=== PATIENT | female | born 1990 | race Caucasian/White ===

== ENCOUNTER 2017-03-08 10:40 | Emergency (ER) | payer MEDICAID ==
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
[2017-03-08] MEDS ORDERED: IBUPROFEN 600 MG TAB PO ONE (11:48)
[2017-03-08 14:45] VITALS: BP 111/81; PULSE 96; RESP 20; TEMP 97.9; O2SAT 97
== END 2017-03-08 14:47 | disposition home or self-care (01) ==
DX: L02.222 Furuncle of back [any part, except buttock and flank] (principal); F17.200 Nicotine dependence, unspecified, uncomplicated; E11.9 Type 2 diabetes mellitus without complications

== ENCOUNTER 2017-04-22 17:03 | Emergency (ER) | payer MEDICAID ==
[~2017-04-22 17:03] MED LIST: AMOXICILLIN/CLAVULANATE POT 875/125 MG TAB PO SCH
[2017-04-22 17:13] VITALS: RESP 20; O2SAT 94
[2017-04-22] MEDS ORDERED: AMOXICILLIN/CLAVULANATE POT 875/125 MG TAB PO ONE (17:21)
[2017-04-22] MEDS ORDERED: NS 1,000 ML IV ONE ×2 (17:23)
[2017-04-22] MEDS ORDERED: AMPICILLIN/SULBACTAM 3 GM in NS 100 ML IV ONE (17:25)
--- NOTE | 2017-04-22 17:26 | EDPHY ---
H & P Time Seen by Provider: 04/22/17 17:07 HPI/ROS: HPI Infection on leg. 27-year-old female. On foot. Homeless. History of methamphetamine and heroin abuse. Reports last use of heroin yesterday. Last use of methamphetamine prior to arrival. She complains of pain and redness to the anterior aspect of her left leg. She noticed this 2-3 days ago. She reports that has become more painful and gotten worse over that time. No known history of trauma. Denies fever. ROS: Constitutional: No fever, no chills. No weakness. Eyes: No discharge. No changes in vision. ENT: No sore throat. No nasal congestion or rhinorrhea. Respiratory: No cough. No shortness of breath. Cardiac: No chest pain, no palpitations. Gastrointestinal: No abdominal pain, no vomiting, no diarrhea. Genitourinary: No hematuria. No dysuria or increased frequency with urination. Musculoskeletal: No back pain. No neck pain. N as above. Skin: No rashes. Neurological: No headache. No focal weakness or altered sensation. Past medical history: Diabetic. Reports that she has not taken insulin in over a year. Social history: Chronically homeless. History of methamphetamine and heroin abuse as above. Denies drinking. Here by herself. Physical Exam: General Appearance: Alert, no distress. This patient is responding to questions appropriately and in full sentences. This patient appears well- hydrated and well-nourished. Eyes: Pupils equal and round no pallor or injection. No lid edema, erythema or injection. ENT, Mouth: Mucous membranes are moist. The pharyngeal tissues are unremarkable. No edema or swelling. No asymmetry suggestive of abscess. No erythema or exudates. Respiratory: There are no retractions, lungs are clear to auscultation with good air movement bilaterally. Cardiovascular: Regular rate and rhythm. No murmur. Gastrointestinal: Abdomen is soft and nontender, no masses, bowel sounds normal. No focal tenderness at McBurney's point. No Springer sign. Neurological: Motor sensory function is grossly intact. Cranial nerves are normal. Gait is normal. Skin: Warm and dry, no rashes. Musculoskeletal: Neck is supple and nontender. Extremities are symmetrical. All joints range without pain or impingement. Psychiatric: No agitation. No depression. Database: EKG: Imaging: Procedures: Emergency department course: IV placed. Vital signs reviewed. She is tachycardic, borderline febrile. History of recent methamphetamine abuse. She was started on IV normal saline with 2 L to be given over the next 1-2 hours. She will also be started on IV Unasyn after blood cultures have been taken. Tachycardia likely secondary to methamphetamine/substance abuse issues versus infectious etiology. 6:10 p.m., is trying to demarcate the patient's area of cellulitis on her left anterior leg. She started becoming aggressive and threatening. She then stated that she wanted to be discharged. Her lactate is 1.6. I discussed admission with her. She is refusing this. She is stating adamantly that she wants to leave the emergency department. We have called security to the room. Given her history I am concerned that she will leave with the IV in place. The IV was removed. We have filled a prescription for Augmentin through the assistance program. I will discharge her with this medication. She was given her 1st dose of Augmentin here on top of the 3 g of IV Unasyn as above. I explained that I wanted her to follow up with the [facility] tomorrow for re-evaluation. Return to emergency department precautions were discussed. All of her questions were answered. She was discharged in good condition. Differential Diagnosis: The differential diagnosis on this patient includes but is not limited to sympathomimetic toxicity, heroin abuse, left leg cellulitis. This represents a partial list of diagnoses considered. These considerations are based on history , physical exam, past history, reassessment and diagnostic testing. Smoking Status: Current every day smoker Constitutional: Initial Vital Signs Temperature (C) 37.5 C 04/22/17 17:10 Heart Rate 122 H 04/22/17 17:10 Respiratory Rate 20 04/22/17 17:10 Blood Pressure 122/76 H 04/22/17 17:10 O2 Sat (%) 94 04/22/17 17:10 O2 Delivery Mode Room Air Allergies/Adverse Reactions: naproxen Allergy (Intermediate, Verified 03/08/17 10:48) Hives Home Medications: Medication Instructions Recorded Cyclobenzaprine [Flexeril 10 MG 10 mg PO 03/08/17 (*)] Gabapentin [Gabapentin 800 mg] 800 mg PO 03/08/17 Amoxicillin/Clavulanate Pot 875 mg PO BID 10 Days tab 04/22/17 [Augmentin 875 mg tab] Humalog 04/22/17 Levimin 04/22/17 Medical Decision Making - Data Points Laboratory Results: Laboratory Results 04/22/17 17:08 04/22/17 17:08 04/22/17 04/22/17 04/22/17 17:45 17:08 17:08 WBC 15.65 10^3/uL H 10^3/uL (3.80-9.50) RBC 5.10 10^6/uL 10^6/uL (4.18-5.33) Hgb 15.6 g/dL g/dL (12.6-16.3) Hct 44.9 % % (38.0-47.0) MCV 88.0 fL fL (81.5-99.8) MCH 30.6 pg pg (27.9-34.1) MCHC 34.7 g/dL g/dL (32.4-36.7) RDW 12.0 % % (11.5-15.2) Plt Count 289 10^3/uL 10^3/uL (150-400) MPV 9.8 fL fL (8.7-11.7) Neut % (Auto) 72.5 % % (39.3-74.2) Lymph % (Auto) 16.7 % % (15.0-45.0) [place] % (Auto) 9.3 % % (4.5-13.0) Eos % (Auto) 0.8 % % (0.6-7.6) Baso % (Auto) 0.3 % % (0.3-1.7) Nucleat RBC Rel Count 0.0 % % (0.0-0.2) Absolute Neuts (auto) 11.35 10^3/uL H 10^3/uL (1.70-6.50) Absolute Lymphs (auto) 2.61 10^3/uL 10^3/uL (1.00-3.00) Absolute Monos (auto) 1.46 10^3/uL H 10^3/uL (0.30-0.80) Absolute Eos (auto) 0.12 10^3/uL 10^3/uL (0.03-0.40) Absolute Basos (auto) 0.05 10^3/uL 10^3/uL (0.02-0.10) Absolute Nucleated RBC 0.00 10^3/uL 10^3/uL (0-0.01) Immature Gran % 0.4 % % (0.0-1.1) Immature Gran # 0.06 10^3/uL 10^3/uL (0.00-0.10) VBG Lactic Acid 1.6 mmol/L mmol/L (0.7-2.1) Sodium 135 mEq/L mEq/L (134-144) Potassium 3.7 mEq/L mEq/L (3.5-5.2) Chloride 93 mEq/L L mEq/L (97-110) Carbon Dioxide 27 mEq/l mEq/l (22-31) Anion Gap 15 mEq/L mEq/L (8-16) BUN 9 mg/dL mg/dL (7-23) Creatinine 0.4 mg/dL L mg/dL (0.6-1.0) Estimated GFR > 60 Glucose 421 mg/dL H mg/dL (70-100) Calcium 9.6 mg/dL mg/dL (8.5-10.4) Medications Given: Discontinued Medications Sodium Chloride (Ns) 1,000 mls @ 0 mls/hr IV ONCE ONE; Wide Open PRN Reason: Protocol Stop: 04/22/17 17:24 Last Admin: 04/22/17 17:45 Dose: 1,000 mls Sodium Chloride (Ns) 1,000 mls @ 0 mls/hr IV ONCE ONE; Wide Open PRN Reason: Protocol Stop: 04/22/17 17:24 Last Admin: 04/22/17 17:46 Dose: 1,000 mls Departure - Departure Disposition: Home, Routine, Self-Care Clinical Impression: Cellulitis of left leg Condition: Good Instructions: Cellulitis (ED) Additional Instructions: Read and follow provided instructions. Follow-up with your primary care physician at [facility] tomorrow at their walk-in clinic on [facility]. Take medication as prescribed through entire course of treatment. It is very important you do this. Return to the emergency department for worsening pain, fever, spreading of the redness that I partially demarcated, swelling or other serious concerns. Referrals: Patient,NotPresent [Primary Care Provider] - As per Instructions Prescriptions: Amoxicillin/Clavulanate Pot [Augmentin 875 mg tab] 875 mg PO BID 10 Days tab
[2017-04-22 17:30] LABS: % IMMATURE GRANULYOCYTES 0.4 % (0.0-1.1); ABSOLUTE IMMATURE GRANULOCYTES 0.06 10^3/uL (0.00-0.10); ADD DIFF? NO; ADD MORPH? NO; ADD SCAN? NO; ATYPICAL LYMPHOCYTE FLAG 0 (0-99); FRAGMENT RBC FLAG 0 (0-99); HEMATOCRIT 44.9 % (38.0-47.0); HEMOGLOBIN 15.6 g/dL (12.6-16.3); LEFT SHIFT FLG 0 (0-99); LIPEMIA HEMOLYSIS FLAG 90 (0-99); MEAN CELL HEMOGLOBIN 30.6 pg (27.9-34.1); MEAN CELL HEMOGLOBIN CONCENTR. 34.7 g/dL (32.4-36.7); MEAN PLATELET VOLUME 9.8 fL (8.7-11.7); PLATELET CLUMPS FLAG 0 (0-99); PLATELET COUNT 289 10^3/uL (150-400)
[2017-04-22 17:36] LABS: ANION GAP 15 mEq/L (8-16); CALCIUM 9.6 mg/dL (8.5-10.4); CARBON DIOXIDE 27 mEq/l (22-31); CHLORIDE 93 mEq/L (97-110); CREATININE 0.4 mg/dL (0.6-1.0); GLOMERULAR FILTRATION RATE > 60; GLUCOSE 421 mg/dL (70-100); POTASSIUM 3.7 mEq/L (3.5-5.2); SODIUM 135 mEq/L (134-144)
[2017-04-22 18:27] VITALS: BP 121/70; PULSE 118
[2017-04-22 18:36] VITALS: TEMP 98.6
== END 2017-04-22 18:43 | disposition home or self-care (01) ==
LOC: EDUNIT#
DX: L03.116 Cellulitis of left lower limb (principal); E11.9 Type 2 diabetes mellitus without complications; F17.200 Nicotine dependence, unspecified, uncomplicated; E86.9 Volume depletion, unspecified; Z79.4 Long term (current) use of insulin
CPT/HCPCS: J0295

== ENCOUNTER 2017-04-29 14:00 | Inpatient (IN) | payer MEDICAID ==
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
[2017-04-29 15:21] LABS: % IMMATURE GRANULYOCYTES 0.3 % (0.0-1.1); ABSOLUTE IMMATURE GRANULOCYTES 0.04 10^3/uL (0.00-0.10); ADD DIFF? NO; ADD MORPH? NO; ADD SCAN? NO; ATYPICAL LYMPHOCYTE FLAG 0 (0-99); FRAGMENT RBC FLAG 0 (0-99); HEMOGLOBIN 14.1 g/dL (12.6-16.3); LEFT SHIFT FLG 0 (0-99); LIPEMIA HEMOLYSIS FLAG 80 (0-99); MEAN CELL HEMOGLOBIN 29.7 pg (27.9-34.1); MEAN CELL HEMOGLOBIN CONCENTR. 33.6 g/dL (32.4-36.7); MEAN CELL VOLUME 88.4 fL (81.5-99.8); PLATELET CLUMPS FLAG 20 (0-99); PLATELET COUNT 495 10^3/uL (150-400); RED BLOOD CELL COUNT 4.75 10^6/uL (4.18-5.33); RED CELL DISTRIBUTION WIDTH 11.8 % (11.5-15.2)
[2017-04-29 15:35] LABS: ANION GAP 15 mEq/L (8-16); CALCIUM 9.8 mg/dL (8.5-10.4); CARBON DIOXIDE 26 mEq/l (22-31); CHLORIDE 93 mEq/L (97-110); CREATININE 0.4 mg/dL (0.6-1.0); GLOMERULAR FILTRATION RATE > 60; GLUCOSE 492 mg/dL (70-100); SODIUM 134 mEq/L (134-144)
[2017-04-29] MEDS ORDERED: VANCOMYCIN HCL/NORMAL SALINE 250 ML IV ONE (16:04)
[2017-04-29] MEDS ORDERED: ONDANSETRON 4 MG/2 ML VIAL IVP PRN (16:07)
[2017-04-29] MEDS ORDERED: ACETAMINOPHEN 325 MG TAB PO PRN (16:07)
[2017-04-29] MEDS ORDERED: ONDANSETRON DISINTEGRATING 4 MG TAB PO PRN (16:07)
[2017-04-29] MEDS ORDERED: diphenhydrAMINE 25 MG CAP PO PRN (16:07)
[2017-04-29] MEDS ORDERED: NICOTINE POLACRILEX 2 MG GUM B PRN (16:19)
[2017-04-29] MEDS ORDERED: D50W 25 GM/50 ML SYR IVP PRN (16:59)
--- NOTE | 2017-04-29 17:05 | PDGENHP ---
History and Physical - Chief Complaint Acute leg pain - History of Present Illness Primary care provider: Previously Dr. Sisi Puentes HPI: 27-year-old female presenting with acute leg pain located in the anterior aspect of her left hernández with associated erythema, onset of symptoms approximately 10 days ago. Duration has been persistent thereafter. [facility] and received IV Unasyn, followed by prescription for Augmentin. The patient reports she only took 3 days of the Augmentin, but her symptoms did not improve after those medications. She does endorse that the pain is worse with standing , somewhat alleviated by elevating the lower extremity. The character of the pain is throbbing. She otherwise denies any dysuria, nausea, vomiting, diarrhea , fever or chills. She reports that she has other ulcerations on her bilateral feet, but these have been there for quite some time preceding development of the erythema located on her left hernández. She denies any specific trauma to that focal area. History Information - Allergies/Home Medication List Allergies/Adverse Reactions: naproxen Allergy (Intermediate, Verified 03/08/17 10:48) Hives Home Medications: CYCLOBENZAPRINE HCL [Flexeril] 10 mg PO HS 04/29/17 [Last Taken 04/29/17] Gabapentin [Neurontin] 1,200 mg PO TID 04/29/17 [Last Taken 04/29/17] Insulin Aspart [Novolog Flexpen] 45 unit SQ TIDMEAL PRN 04/29/17 [Last Taken 01/06] Insulin Detemir [Levemir Flextouch] 90 unit SQ BID 04/29/17 [Last Taken Unknown] Ranitidine HCl [Zantac] 450 - 600 mg PO DAILY 04/29/17 [Last Taken 04/27/17] I have personally reviewed and updated: family history, medical history, social history, surgical history - Past Medical History Additional medical history: Peripheral neuropathy for approximately 8 years. Chronic pain with continuous opiate dependency for lower back pain. Chronic foot ulcerations. Reports major depressive disorder - Surgical History Additional surgical history: No surgeries on her bilateral feet or legs - Family History Additional family history: Patient reports that all of her first-degree family members have substance abuse and addiction issues, her mother has reportedly bipolar disease and her uncle was reportedly psychotic - Social History Smoking Status: Current every day smoker Alcohol Use: None Drug Use: Heroin (Last use last night), Marijuana, Other (Methamphetamine) Additional social history: Patient is reportedly homeless, she has 3 male children, 2 of which are in foster homes and 3rd is living with grandparents, her is currently incarcerated Review of Systems Review of Systems: ROS: 10pt was reviewed & negative except for what was stated in HPI & below Skin: Reports: other (Erythema and tenderness left lower extremity) Neurological: Reports: other (Neuropathy bilateral lower extremities) Physical Exam Physical Exam: Temp Pulse Resp BP Pulse Ox 36.8 C 112 H 18 109/66 95 04/29/17 14:36 04/29/17 16:11 04/29/17 16:11 04/29/17 16:11 04/29/17 16:11 Constitutional: no apparent distress, chronically ill appearing, uncomfortable, unkempt Eyes: PERRL, anicteric sclera, EOMI Ears, Nose, Mouth, Throat: moist mucous membranes, hearing normal, ears appear normal, other (Tongue ring, glossitis) Cardiovascular: regular rate and rhythym, no murmur, rub, or gallop, No edema Respiratory: no respiratory distress, no rales or rhonchi, clear to auscultation Gastrointestinal: normoactive bowel sounds, soft, non-tender abdomen, no palpable masses Genitourinary: no bladder fullness, no bladder tenderness Skin: pressure ulcer (Bilateral lateral 5th digits on the lower extremities as well as on the plantar surface of the left foot), other (Tender erythema located along the left lower extremity from immediately proximal to the ankle did area distal to the knee, blanching, move past previous demarcation lines) Musculoskeletal: other (Full range of motion left ankle, full range of motion left knee without any pain) Neurologic: AAOx3, No sensation intact bilaterally (Subjective paresthesias bilateral distal lower extremities), No weakness Psychiatric: not anxious, not encephalopathic, thought process linear, depressed , flat affect, No agitated Lab Data & Imaging Review 04/29/17 15:10 04/29/17 15:10 WBC 12.78 10^3/uL (3.80-9.50) H 04/29/17 15:10 RBC 4.75 10^6/uL (4.18-5.33) 04/29/17 15:10 Hgb 14.1 g/dL (12.6-16.3) 04/29/17 15:10 Hct 42.0 % (38.0-47.0) 04/29/17 15:10 MCV 88.4 fL (81.5-99.8) 04/29/17 15:10 MCH 29.7 pg (27.9-34.1) 04/29/17 15:10 MCHC 33.6 g/dL (32.4-36.7) 04/29/17 15:10 RDW 11.8 % (11.5-15.2) 04/29/17 15:10 Plt Count 495 10^3/uL (150-400) H 04/29/17 15:10 MPV 9.0 fL (8.7-11.7) 04/29/17 15:10 Neut % (Auto) 62.8 % (39.3-74.2) 04/29/17 15:10 Lymph % (Auto) 27.1 % (15.0-45.0) 04/29/17 15:10 [place] % (Auto) 8.2 % (4.5-13.0) 04/29/17 15:10 Eos % (Auto) 1.3 % (0.6-7.6) 04/29/17 15:10 Baso % (Auto) 0.3 % (0.3-1.7) 04/29/17 15:10 Nucleat RBC Rel Count 0.0 % (0.0-0.2) 04/29/17 15:10 Absolute Neuts (auto) 8.03 10^3/uL (1.70-6.50) H 04/29/17 15:10 Absolute Lymphs (auto) 3.46 10^3/uL (1.00-3.00) H 04/29/17 15:10 Absolute Monos (auto) 1.05 10^3/uL (0.30-0.80) H 04/29/17 15:10 Absolute Eos (auto) 0.16 10^3/uL (0.03-0.40) 04/29/17 15:10 Absolute Basos (auto) 0.04 10^3/uL (0.02-0.10) 04/29/17 15:10 Absolute Nucleated RBC 0.00 10^3/uL (0-0.01) 04/29/17 15:10 Immature Gran % 0.3 % (0.0-1.1) 04/29/17 15:10 Immature Gran # 0.04 10^3/uL (0.00-0.10) 04/29/17 15:10 Sodium 134 mEq/L (134-144) 04/29/17 15:10 Potassium 4.0 mEq/L (3.5-5.2) 04/29/17 15:10 Chloride 93 mEq/L (97-110) L 04/29/17 15:10 Carbon Dioxide 26 mEq/l (22-31) 04/29/17 15:10 Anion Gap 15 mEq/L (8-16) 04/29/17 15:10 BUN 12 mg/dL (7-23) 04/29/17 15:10 Creatinine 0.4 mg/dL (0.6-1.0) L 04/29/17 15:10 Estimated GFR > 60 04/29/17 15:10 Glucose 492 mg/dL (70-100) H 04/29/17 15:10 Calcium 9.8 mg/dL (8.5-10.4) 04/29/17 15:10 Visualized and Interpreted imaging results: Yes Interpretation: X-ray of the left lower extremity demonstrating no fracture Assessment & Plan Assessment: 27-year-old female presenting with cellulitis refractory to oral antibiotic treatment complicated by hyperglycemia in the setting of diabetes polysubstance addiction Plan: 1. Cellulitis. Acute, new problem this provider, further workup indicated. Failed outpatient oral antibiotic therapy, patient reports that her most recent infant child had an MRSA infection approximately a year and half ago, patient reports no response to Unasyn/Augmentin -reviewed outside records including 04/22/[address] emergency [address] Dr[address] Smiley Eagle, reports [place] [id number] at that time, provided 1 dose of IV Unasyn, oral Augmentin prescription -discussed with Ann Germain, ED provider, in the emergency department, we have agreed to give the patient IV vancomycin, continue q.12 hours -gauge response and consider transitioning to doxycycline or Bactrim depending on improvement -initial blood cultures from April 22 sent, repeat blood cultures now -leukocytosis, repeat white blood cell count tomorrow to gauge response -ultrasound of the lower extremity demonstrated no DVT 2. Multiple pressure injuries. Present on admission, located on the bilateral 5th toes as well as the plantar surface of the right lower extremity, in the setting of neuropathy -wound care consultation appreciated -recommend outpatient wound care follow-up 3. Neuropathy. Chronic, continue her on home dosage of gabapentin, will need outpatient follow-up arranged 4. Diabetes mellitus with hyperglycemia. Uncontrolled, will check hemoglobin A1c, unclear whether patient is actually taking any insulin at this time, as she does not have it with her home medications -reinitiate long-acting insulin, at half the home dosage reconciled and gauge response -insulin sliding scale -will need outpatient primary care follow-up neuro to ensure adherence 5. Reported major depressive disorder. Most likely contributing to patient's polysubstance addiction with continuous opiate dependency for chronic back pain , initiated on Percocet in the past, patient has adjusted to smoking heroin -attempt to manage patient's pain without IV medications -appreciate Ling Cheraw consultation to assist in supporting this patient and considering outpatient follow-up -use nonnarcotic methods of the keeping the patient comfortable while in the hospital, including nicotine replacement therapy, Benadryl as needed 6. Chronic pain with continuous opiate dependency. See above Diet. Regular Prophylaxis. High risk patient Lovenox 40 Code. Full, her MPOA is her incarcerated Disposition. Anticipated discharge uncertain, anticipated length stay greater than 48 hours warranting inpatient admission status for acute cellulitis refractory to oral antibiotic therapy, requiring IV antibiotics and frequent reassessments in the setting of high risk comorbid conditions outlined above.
--- NOTE | 2017-04-29 17:31 | PDMN ---
Medical Necessity Medical necessity: C/M review: est. > 2 MN LOS for eval and TX of acute left lower extremity cellulitis refractory to oral antibiotic therapy, uncontrolled hyperglycemia, requiring planned Wound Care consult, Behavioral health nurse consult, ongoing IV Vancomycin, IV fluids, comorbid ED visit one week prior to this admission for LLE erythema / pain treated with IV Unasyn, then oral Augmentin post ED discharge, multiple pressure injuries present on admit, diabetes, polysubstance addiction, current tobacco smoker, neuropathy, reported major depressive disorder, chronic pain with continuous opiate dependency per H/ P.
[2017-04-29] MEDS: NS 1,000 ML IV SCH (18:15)
[2017-04-29] MEDS: NICOTINE 21 MG/24 HR PATCH TD SCH (18:18)
[2017-04-29] MEDS: INSULIN REGULAR HUMAN 100 UNIT/ML SC SCH ×2 (18:20→21:53)
[2017-04-29] MEDS: HYDROmorphONE/DILAUDID 2 MG TAB PO PRN (19:44)
[2017-04-29] MEDS: INSULIN GLARGINE 100 UNITS/ML SYRINGE SC SCH (21:53)
[2017-04-29] MEDS: FAMOTIDINE 20 MG TAB PO SCH (21:53)
[2017-04-29] MEDS: CYCLOBENZAPRINE HCL 10 MG PO SCH (21:54)
[2017-04-29] MEDS: GABAPENTIN 1200 MG PO SCH (21:54)
[2017-04-29] MEDS: LORazepam 1 MG TAB PO PRN (22:06)
[2017-04-30] MEDS: NS 1,000 ML IV SCH ×2 (03:36→17:53)
[2017-04-30] MEDS ORDERED: VANCOMYCIN 750 MG in D5W 150 ML IV SCH (04:00)
[2017-04-30 05:31] LABS: % IMMATURE GRANULYOCYTES 0.3 % (0.0-1.1); ABSOLUTE IMMATURE GRANULOCYTES 0.04 10^3/uL (0.00-0.10); ADD DIFF? NO; ADD MORPH? NO; ADD SCAN? NO; ATYPICAL LYMPHOCYTE FLAG 10 (0-99); FRAGMENT RBC FLAG 0 (0-99); HEMATOCRIT 37.4 % (38.0-47.0); HEMOGLOBIN 12.8 g/dL (12.6-16.3); LEFT SHIFT FLG 0 (0-99); LIPEMIA HEMOLYSIS FLAG 90 (0-99); MEAN CELL HEMOGLOBIN 30.1 pg (27.9-34.1); MEAN CELL HEMOGLOBIN CONCENTR. 34.2 g/dL (32.4-36.7); PLATELET CLUMPS FLAG 0 (0-99); PLATELET COUNT 391 10^3/uL (150-400); RED BLOOD CELL COUNT 4.25 10^6/uL (4.18-5.33); RED CELL DISTRIBUTION WIDTH 11.9 % (11.5-15.2)
[2017-04-30 05:53] LABS: ALANINE AMINOTRANSFERASE 25 IU/L (9-52); ALKALINE PHOSPHATASE 74 IU/L (38-126); ANION GAP 9 mEq/L (8-16); ASPARTATE AMINOTRANSFERASE 11 IU/L (14-46); BILIRUBIN,TOTAL 0.3 mg/dL (0.1-1.4); CALCIUM 8.9 mg/dL (8.5-10.4); CARBON DIOXIDE 27 mEq/l (22-31); CHLORIDE 99 mEq/L (97-110); CREATININE 0.5 mg/dL (0.6-1.0); GLOMERULAR FILTRATION RATE > 60; GLUCOSE 159 mg/dL (70-100); POTASSIUM 4.1 mEq/L (3.5-5.2); SODIUM 135 mEq/L (134-144); TOTAL PROTEIN 6.2 g/dL (6.3-8.2)
[2017-04-30] MEDS: INSULIN REGULAR HUMAN 100 UNIT/ML SC SCH ×4 (08:46→21:54)
[2017-04-30] MEDS: NICOTINE 21 MG/24 HR PATCH TD SCH (09:28)
[2017-04-30] MEDS: INSULIN GLARGINE 100 UNITS/ML SYRINGE SC SCH ×2 (09:28→21:54)
[2017-04-30] MEDS: HYDROmorphONE/DILAUDID 2 MG TAB PO PRN ×4 (09:29→23:30)
[2017-04-30] MEDS: ENOXAPARIN 40 MG/0.4 ML SYR SC SCH (09:30)
[2017-04-30] MEDS: PHENYLEPHRINE HCL 10 MG PO SCH (09:30)
[2017-04-30] MEDS: FAMOTIDINE 20 MG TAB PO SCH ×2 (09:30→19:41)
[2017-04-30] MEDS: GABAPENTIN 1200 MG PO SCH ×3 (09:31→21:53)
--- NOTE | 2017-04-30 12:14 | HOSPPROG ---
Hospitalist Progress Note Assessment/Plan: # L leg cellulitis - failed augmentin; underlying abscess? - check US - cont vanc IV today # DM1 - hyperglycemia better - cont glargine + regular SSI # pressure injuries - wound care c/s # neuropathy # chronic pain with narcotic dependency # depression - Ling Travis to see # polysubstance abuse # homeless Subjective: leg still very painful; also c/o back pain Objective: Vital Signs Temp Pulse Resp BP Pulse Ox 36.9 C 94 18 116/82 H 97 04/30/17 08:00 04/30/17 08:00 04/30/17 08:00 04/30/17 08:00 04/30/17 08:00 Laboratory Results 04/30/17 04:29 04/30/17 04:20 04/29/17 04/30/17 05/01/17 05:59 05:59 05:59 Intake Total 1646 Balance 1646 - Physical Exam Constitutional: no apparent distress, appears nourished Cardiovascular: regular rate and rhythym, no murmur, rub, or gallop Respiratory: no respiratory distress, no rales or rhonchi, clear to auscultation Gastrointestinal: normoactive bowel sounds, soft, non-tender abdomen, no palpable masses Musculoskeletal: other (L leg with erythema, edema; ?fluctuance) ICD10 Worksheet Patient Problems: Problems Problem Status Onset Cellulitis of left lower leg Acute
[2017-04-30] MEDS: VANCOMYCIN 1.25 GM in D5W 250 ML IV SCH (14:45)
--- NOTE | 2017-04-30 15:48 | ASMTCMCOM ---
CM Note CM Note Notes: Pt admitted for left hernández cellulitis. She has a significant drug, trauma, and mental health history including multiple incarcerations, street drug use, homelessness, and mental health diagnoses. She says that she has been sleeping outside for the past month while her has been in retirement - he is supposed to get out tomorrow, and she is hopeful that he will have a plan for them for detention. She does not have any friends/family herself that can help. Patient admits to being very hopeless, she feels that she has too many balls to juggle regarding her healthcare, so she tends to self-medicate with street drugs since they are faster and easier to access. It seems like she has had a PCP and a pain doctor in the past, but she hasn't stayed consistently engaged. She is interested in mental health treatment because she feels that her mental health is her greatest barrier to making improvements in her life, but she's doubtful that she can make changes d/t existing hurdles as well as her history. Discharge planning will be a challenge. Ling Travis has seen patient, we will await her report. Patient would benefit from establishing care at [facility] where she can be seen for both medical and psychological needs. CM can arrange this. We can also give her resources for homeless resources if her is not going to find housing for them. Finally, we will await blood culture/ID recommendations regarding IV antibiotics after dischange. Patient says she has never used IV drugs; however, her tenuous housing situation will probably prevent the likelihood of adherance to a course of IV abx. Date Signed: 04/30/2017 03:48 PM Electronically Signed By:Krissy Modi RN
[2017-04-30] MEDS ORDERED: FLU VACC QS 2017-18 (3YR+)/PF 0.5 ML SYR (FLUARIX QUAD) IM ONE (16:20)
[2017-04-30] MEDS ORDERED: PNEUMOCOCCAL 0.5ML VACCINE VIAL IM ONE (16:21)
--- NOTE | 2017-04-30 19:15 | GCON ---
[f rep st] CONSULTATION HISTORY OF PRESENT ILLNESS: The patient is a 27-year-old female with a past medical history significant for IV drug use, tobacco, type 2 diabetes that is insulin resistant, and multiple abscesses, including 1 on the face and 1 on the spine. Today, she presented to the emergency room complaining of a left lower leg infection of 2 weeks duration. Last week she was placed on Augmentin, which she claims did not help as the redness on the left lower leg and swelling continues. Extremity ultrasound performed in the emergency room showed a small complex fluid collection along the anterior aspect of the tibia, which may be amenable to ultrasound-guided aspiration. She states that she has not had any fevers, abdominal pain, heart trouble, difficulty breathing, headaches. She reports severe pain in the lower leg. The last time she used any street drugs was heroin immediately before coming to the emergency room. REVIEW OF SYSTEMS: A 10-point review of systems was negative, except for as noted above in the HPI. PAST MEDICAL HISTORY: Significant for multiple abscesses, type 2 diabetes that is insulin resistant. SOCIAL HISTORY: Current every day smoker. No alcohol use. Polysubstance abuse. PHYSICAL EXAM: VITAL SIGNS: Afebrile. GENERAL: Nontoxic appearing female. SKIN: Warm, dry. HEENT: Normocephalic. Negative for scleral icterus. CARDIAC: Regular rate and rhythm. RESPIRATORY: Lungs clear to auscultation bilaterally. No increased work of breathing. ABDOMEN: Soft, nontender, nondistended. EXTREMITIES: Left lower extremity area of tender fluctuance, erythema, warmth. Adequate peripheral perfusion. DP and PT pulses intact distally. NEURO: Cranial nerves 2-12 grossly intact. Alert and oriented. PSYCH: patient tearful IMPRESSION: The patient is a 27-year-old female with a likely abscess on her left lower extremity that did not respond to oral Augmentin. She is now on IV vancomycin with leukocytosis with a left shift. PLAN: The sepsis will likely require aspiration, either at the bedside or in the operating room. The procedure has been discussed with the patient. She is tearful about having this done. Will discuss with Dr. Soler, and Dr. Soler will see her later this evening. /[id number]/MODL MTDD
--- NOTE | 2017-04-30 20:43 | SOAPPROG ---
SOAP Progress Note Assessment/Plan: Assessment: SEEN WITH ROSY SHERMAN/ NEEDS I&D OF LEG ABSCESS RISKS AND OPTIONS FULLY DISCUSSED Plan:I &D IN OR IN AM 04/30/17 20:42 Objective: Vital Signs Temp Pulse Resp BP Pulse Ox 37.1 C 106 H 16 125/92 H 95 04/30/17 19:32 04/30/17 19:32 04/30/17 19:32 04/30/17 19:32 04/30/17 19:32 Laboratory Results 04/30/17 04:29 04/30/17 04:20 04/29/17 04/30/17 05/01/17 05:59 05:59 05:59 Intake Total 1646 1450 Balance 1646 1450 ICD10 Worksheet Patient Problems: Problems Problem Status Onset Cellulitis of left lower leg Acute
[2017-04-30] MEDS: CYCLOBENZAPRINE HCL 10 MG PO SCH (21:52)
[2017-05-01] MEDS: VANCOMYCIN 1.25 GM in D5W 250 ML IV SCH ×5 (01:38→19:20)
[2017-05-01] MEDS: NS 1,000 ML IV SCH ×2 (01:38→10:51)
[2017-05-01] MEDS: LORazepam 1 MG TAB PO PRN ×3 (01:42→19:28)
[2017-05-01] MEDS: HYDROmorphONE/DILAUDID 2 MG TAB PO PRN ×3 (03:34→19:28)
[2017-05-01 04:48] LABS: % IMMATURE GRANULYOCYTES 0.3 % (0.0-1.1); ABSOLUTE IMMATURE GRANULOCYTES 0.03 10^3/uL (0.00-0.10); ADD DIFF? NO; ADD MORPH? NO; ADD SCAN? NO; ATYPICAL LYMPHOCYTE FLAG 10 (0-99); FRAGMENT RBC FLAG 0 (0-99); HEMATOCRIT 35.4 % (38.0-47.0); LEFT SHIFT FLG 0 (0-99); LIPEMIA HEMOLYSIS FLAG 90 (0-99); MEAN CELL HEMOGLOBIN 30.1 pg (27.9-34.1); MEAN CELL HEMOGLOBIN CONCENTR. 33.9 g/dL (32.4-36.7); MEAN CELL VOLUME 88.7 fL (81.5-99.8); MEAN PLATELET VOLUME 8.8 fL (8.7-11.7); PLATELET CLUMPS FLAG 0 (0-99); PLATELET COUNT 391 10^3/uL (150-400); RED BLOOD CELL COUNT 3.99 10^6/uL (4.18-5.33); RED CELL DISTRIBUTION WIDTH 11.9 % (11.5-15.2)
[2017-05-01 05:18] LABS: ANION GAP 9 mEq/L (8-16); CALCIUM 8.8 mg/dL (8.5-10.4); CARBON DIOXIDE 27 mEq/l (22-31); CHLORIDE 99 mEq/L (97-110); CREATININE 0.4 mg/dL (0.6-1.0); GLOMERULAR FILTRATION RATE > 60; GLUCOSE 171 mg/dL (70-100); POTASSIUM 4.3 mEq/L (3.5-5.2); SODIUM 135 mEq/L (134-144)
[2017-05-01] MEDS: INSULIN REGULAR HUMAN 100 UNIT/ML SC SCH ×4 (09:11→21:17)
[2017-05-01] MEDS: INSULIN GLARGINE 100 UNITS/ML SYRINGE SC SCH ×2 (09:12→21:17)
[2017-05-01] MEDS: GABAPENTIN 1200 MG PO SCH ×3 (09:13→21:17)
[2017-05-01] MEDS: PHENYLEPHRINE HCL 10 MG PO SCH (09:13)
[2017-05-01] MEDS: ENOXAPARIN 40 MG/0.4 ML SYR SC SCH (09:14)
[2017-05-01] MEDS: FAMOTIDINE 20 MG TAB PO SCH ×2 (09:14→19:28)
[2017-05-01] MEDS ORDERED: BUPIVACAINE 0.5% 30 ML SDV ONE (09:16)
[2017-05-01] MEDS ORDERED: BACITRACIN 50,000 UNITS/10 ML SYR IRR ONE (09:17)
--- NOTE | 2017-05-01 12:01 | ASMTCMCOM ---
CM Note CM Note Notes: Pt had surgery scheduled this AM. Pt refused to go to surgery this AM. Surgery has been rescheduled until 2pm this afternoon. Needs TBD at this time. CM to follow. Date Signed: 05/01/2017 12:00 PM Electronically Signed By:NA Costa
[2017-05-01] MEDS: D5W 1/2 NS 1,000 ML IV SCH (12:16)
[2017-05-01] MEDS ORDERED: VANCOMYCIN 1.25 GM in D5W 250 ML IV SCH (14:00)
[2017-05-01] MEDS: NICOTINE 21 MG/24 HR PATCH TD SCH (14:24)
--- NOTE | 2017-05-01 15:46 | ASMTCMCOM ---
CM Note CM Note Notes: Cammy Agudelo, director of Case Management met w/ pt to go over guidelines regarding open door policy while having a line placed since pt is a known IV heroin user. Pt is unhappy about this policy and unwilling to cooperate. Pt is eating and surgery is cancelled again for this afternoon. CM to follow. Date Signed: 05/01/2017 03:45 PM Electronically Signed By:NA Costa
--- NOTE | 2017-05-01 18:03 | SOAPPROG ---
EDWIN Progress Note Assessment/Plan: Assessment: SEEN WITH ROSY SHERMAN/ NEEDS I&D OF LEG ABSCESS RISKS AND OPTIONS FULLY DISCUSSED Plan:I &D IN OR IN AM 04/30/17 20:42 05/01/17 18:00 PT VERY UNCOOPERATIVE AND CURSING AND REFUSING SURGERY TODAY LEFT LEG ABSCESS STABLE BUT TENDER/ AFEBRILE/ RISKS AND OPTIONS FULLY DISCUSSED/ WILL RESCHEDULE FOR TOMORROW Objective: Vital Signs Temp Pulse Resp BP Pulse Ox 37.4 C 102 H 18 112/78 97 05/01/17 16:00 05/01/17 16:00 05/01/17 16:00 05/01/17 16:00 05/01/17 16:00 Laboratory Results 05/01/17 04:28 05/01/17 04:28 04/30/17 05/01/17 05/02/17 05:59 05:59 05:59 Intake Total 1646 1450 Balance 1646 1450 ICD10 Worksheet Patient Problems: Problems Problem Status Onset Cellulitis of left lower leg Acute
--- NOTE | 2017-05-01 18:50 | HOSPPROG ---
Hospitalist Progress Note Assessment/Plan: Assessment: 27-year-old female presenting with cellulitis and abscess complicated by hyperglycemia in the setting of diabetes polysubstance addiction Plan: 1. Cellulitis and abscess. Present on LLE US, refractory to PO Abx - cont Vanco - definitive tx is I&D - counseled patient to stay and receive appropriate I&D (which she refused today b/c she was hungry, agitated) - monitor WBC - if patient leaves AMA, doxy PO bid Rx written in chart 2. Multiple pressure injuries. Present on admission, located on the bilateral 5th toes as well as the plantar surface of the right lower extremity, in the setting of neuropathy -wound care consultation appreciated -recommend outpatient wound care follow-up 3. Neuropathy. Chronic, continue her on home dosage of gabapentin, will need outpatient follow-up arranged 4. Diabetes mellitus with hyperglycemia. Uncontrolled, increase lantus, cont ISS 5. Reported major depressive disorder. Most likely contributing to patient's polysubstance addiction with continuous opiate dependency for chronic back pain , initiated on Percocet in the past, patient has adjusted to smoking heroin -attempt to manage patient's pain without IV medications -appreciate [facility] consultation to assist in supporting this patient and considering outpatient follow-up -use nonnarcotic methods of the keeping the patient comfortable while in the hospital, including nicotine replacement therapy, Benadryl as needed -patient with poor coping mechanisms to stress, impairing her ability to receive care, conferenced w/ RN, CM, unit manger to help facilitate most effective care 6. Chronic pain with continuous opiate dependency. See above Diet. Regular Prophylaxis. High risk patient Lovenox 40 Code. Full, her MPOA is her incarcerated Disposition. ADD uncertain, pending I&D Subjective: patient beligerent this AM to surgery staff/floor staff, calmed later, tearful and frightened Objective: Vital Signs Temp Pulse Resp BP Pulse Ox 37.4 C 102 H 18 112/78 97 05/01/17 16:00 05/01/17 16:00 05/01/17 16:00 05/01/17 16:00 05/01/17 16:00 Laboratory Results 05/01/17 04:28 05/01/17 04:28 04/30/17 05/01/17 05/02/17 05:59 05:59 05:59 Intake Total 1646 1450 1050 Balance 1646 1450 1050 - Time Spent With Patient Time Spent with Patient: greater than 35 minutes Time Spent with Patient: Greater than 35 minutes spent on this patients care, greater than 50% of time spent counseling, educating, and coordinating care regarding the above mentioned plan. - Physical Exam Constitutional: chronically ill appearing, uncomfortable Cardiovascular: regular rate and rhythym, no murmur, rub, or gallop Respiratory: no respiratory distress, no rales or rhonchi, clear to auscultation Gastrointestinal: normoactive bowel sounds, soft, non-tender abdomen, no palpable masses Skin: other (tender fluctuant area L hernández w/ erythema, induration) Neurologic: AAOx3 Psychiatric: anxious, agitated, other (labile affect) ICD10 Worksheet Patient Problems: Problems Problem Status Onset Cellulitis of left lower leg Acute
[2017-05-01] MEDS: CYCLOBENZAPRINE HCL 10 MG PO SCH (21:17)
[2017-05-02 00:03] VITALS: RESP 12; TEMP 97.7
[2017-05-02] MEDS: D5W 1/2 NS 1,000 ML IV SCH (01:25)
[2017-05-02] MEDS: HYDROmorphONE/DILAUDID 2 MG TAB PO PRN (01:25)
[2017-05-02] MEDS: LORazepam 1 MG TAB PO PRN (01:25)
[2017-05-02] MEDS ORDERED: VANCOMYCIN 1.25 GM in D5W 250 ML IV SCH (02:00)
[2017-05-02 04:02] VITALS: BP 110/72; PULSE 95; O2SAT 99
--- NOTE | 2017-05-02 04:48 | HOSPPROG ---
Hospitalist Progress Note Assessment/Plan: Cross Cover: Called to bedside by RN around 4 AM. Patient was seen acting suspiciously and hiding objects from staff, she had also exhibited intermittent somnolence. Noting history of drug abuse, patient was asked to allow security to search her belongings, which she refused. She preferred to leave the hospital against medical advice rather than allow security to search her belongings. All sedating medications were removed from her orders in the meantime. She has a subscription for oral antibiotics in her chart in the event that she decides to leave. Objective: Vital Signs Temp Pulse Resp BP Pulse Ox 36.5 C 95 12 110/72 99 05/02/17 00:00 05/02/17 03:58 05/02/17 00:00 05/02/17 03:58 05/02/17 03:58 Laboratory Results 05/01/17 04:28 05/01/17 04:28 04/30/17 05/01/17 05/02/17 05:59 05:59 05:59 Intake Total 1646 1450 1050 Balance 1646 1450 1050 ICD10 Worksheet Patient Problems: Problems Problem Status Onset Cellulitis of left lower leg Acute
--- NOTE | 2017-05-02 09:32 | ASDISCHSUM ---
Discharge Information Plan Status: Medically Cleared to Leave:05/02/2017 Discharge Date:05/02/2017 07:30 AM CM D/C Disposition: ADT D/C Disposition:Against Medical Advice Projected Discharge Date:05/02/2017 12:00 AM Transportation at D/C: Discharge Delay Reason: Follow-Up Date:05/02/2017 12:00 AM Discharge Slot: Final Diagnosis: Placement Information Patient Contact Information Contact Name:GAYMISTI Relationship: Address: Home Phone: Work Phone: City: Alternate Phone: State/Zip Code: Email: Financial Information Financial Class: Primary Plan Desc:[facility] Primary Plan Number:[id number] Secondary Plan Desc: Secondary Plan Number: Assessment Information [facility] Progress Note CM Note CM Note Notes: Pt admitted for left hernández cellulitis. She has a significant drug, trauma, and mental health history including multiple incarcerations, street drug use, homelessness, and mental health diagnoses. She says that she has been sleeping outside for the past month while her has been in assisted - he is supposed to get out tomorrow, and she is hopeful that he will have a plan for them for correction. She does not have any friends/family herself that can help. Patient admits to being very hopeless, she feels that she has too many balls to juggle regarding her healthcare, so she tends to self-medicate with street drugs since they are faster and easier to access. It seems like she has had a PCP and a pain doctor in the past, but she hasn't stayed consistently engaged. She is interested in mental health treatment because she feels that her mental health is her greatest barrier to making improvements in her life, but she's doubtful that she can make changes d/t existing hurdles as well as her history. Discharge planning will be a challenge. Ling Travis has seen patient, we will await her report. Patient would benefit from establishing care at [facility] where she can be seen for both medical and psychological needs. DENNY can arrange this. We can also give her resources for homeless resources if her is not going to find housing for them. Finally, we will await blood culture/ID recommendations regarding IV antibiotics after dischange. Patient says she has never used IV drugs; however, her tenuous housing situation will probably prevent the likelihood of adherance to a course of IV abx. Date Signed: 04/30/2017 03:48 PM Electronically Signed By:Krissy Modi RN [facility] Progress Note CM Note CM Note Notes: Pt had surgery scheduled this AM. Pt refused to go to surgery this AM. Surgery has been rescheduled until 2pm this afternoon. Needs TBD at this time. CM to follow. Date Signed: 05/01/2017 12:00 PM Electronically Signed By:NA Costa [facility] CM Progress Note CM Note CM Note Notes: Cammy Agudelo, director of Case Management met w/ pt to go over guidelines regarding open door policy while having a line placed since pt is a known IV heroin user. Pt is unhappy about this policy and unwilling to cooperate. Pt is eating and surgery is cancelled again for this afternoon. CM to follow. Date Signed: 05/01/2017 03:45 PM Electronically Signed By:NA Costa Intervention Information
--- NOTE | 2017-05-02 17:37 | PDDCSUM ---
Discharge Summary Discharge Summary: DISCHARGE SUMMARY FOLLOW-UP ITEMS: Encourage patient to follow up at [facility] DATE OF ADMISSION: 04/29/2017 DATE OF DISCHARGE: 05/02/2017 DISCHARGE DIAGNOSES: 1. Acute cellulitis and abscess 2. Multiple pressure injury present on admission 3. Chronic neuropathy 4. Diabetes mellitus with hyperglycemia 5. Reported major depressive disorder 6. Chronic pain with continuous opiate dependency 7. Polysubstance abuse CONSULTATIONS: Subjective a behavioral health, general surgery Dr. Freedom Soler PROCEDURES / IMAGING: Ultrasound demonstrating discrete abscess along the left catheterization CHIEF COMPLAINT: Acute leg pain SUBJECTIVE: Patient was irrate and agitated at time of discharge PHYSICAL EXAM ON DISCHARGE: Systolic blood pressure 110, heart rate 95, satting 90% on room air, temperature 36.5degrees LABS ON DISCHARGE: White blood cell count [id number] HOSPITAL COURSE BY PROBLEM: The patient presented with acute cellulitis refractory to oral antibiotic therapy given that she had developed discrete abscess along her left anterior hernández. She has also not taken her previously prescribed antibiotics accurately. Consequently, the patient was placed on IV vancomycin and she was evaluated for definitive incision and drainage by Dr. Freedom Soler. The patient became increasingly agitated when she was made NPO for surgical procedure, and she canceled the procedure on 2 occasions. We continue to work with the patient and provide her with IV antibiotics, as well as as needed pain control. She was seen by wound care for the treatment of multiple pressure injury is which were present on admission and the patient was also continued on her home dosage of gabapentin for her chronic neuropathy. We re-initiated some Lantus which the patient was most likely not taking as an outpatient and placed on insulin sliding scale for hyperglycemia. We also attempted to emotional support the patient as she reported that she has major depressive disorder and is attempting to stay clean from methamphetamine and heroin. The patient engaged in highly erratic and agitated behavior her during her hospitalization and ultimately requested to be discharged against medical advice prior to receiving definitive incision and drainage. This occurred after there were concerns that the patient may be taking illicit substances present in her backpack, and, when our staff appropriately raised concerns and asked security to search the patient 's belongings for any potentially harmful substances, she asked to be discharged. She was offered doxycycline at discharge, and she tore up the prescription prior to leaving the unit. DISCHARGE MEDICATIONS: Please see official discharge medication reconciliation sheet in chart , patient electively left without any prescriptions for any medications. DISCHARGE INSTRUCTIONS: The patient [facility] or she should return to emergency department if she experiences worsening of the affected area.
== END 2017-05-02 07:30 | disposition left against medical advice (07) | DRG 603 ==
LOC: F3E 17:36
PROVIDERS: ADMIT Internal Medicine; ATTEND Internal Medicine
DX: L03.116 Cellulitis of left lower limb (principal); L89.899 Pressure ulcer of other site, unspecified stage; E11.65 Type 2 diabetes mellitus with hyperglycemia; E11.40 Type 2 diabetes mellitus with diabetic neuropathy, unspecified; F11.20 Opioid dependence, uncomplicated; G89.29 Other chronic pain; F17.200 Nicotine dependence, unspecified, uncomplicated; F32.9 Major depressive disorder, single episode, unspecified; Z91.14 Patient's other noncompliance with medication regimen; Z59.0 Homelessness
CPT/HCPCS: G0008; G0009; G0472; J1650; J1815; J3370